=== PATIENT | female | born 1980 | race Caucasian/White ===

== ENCOUNTER 2017-09-19 02:46 | Emergency (ER) | payer OTHER ==
[~2017-09-19] VITALS: Ht 147.3 cm; Wt 44.5 kg
[~2017-09-19 02:46] MED LIST: ACETAMINOPHEN-1 EAC1 PO; AMOXIL 875 MG875 M1 PO; ATENOLOL-CHLOR1 EAC2 PO; AUGMENTIN 875875 M1 PO; AUGMENTIN 875875 MG PO; HYDROCODON-ACE1 EAC7 PO; IBUPROFEN 800800 MG PO; NOHOMEMEDICATIONS; NORCO 5-325 TA1 EACH PO; PERCOCET 5-3251 EACH PO
[2017-09-19] MEDS ORDERED: HYDROCODONE-AP1 EAC6 PO (03:12)
[2017-09-19] MEDS ORDERED: AMOXICILLIN875 MG PO (03:12)
[2017-09-19 03:29] VITALS: BP 118/70
== END 2017-09-19 03:31 | disposition home or self-care (01) ==
LOC: M.ERS 02:46
DX: H66.91 Otitis media, unspecified, right ear (principal); H72.91 Unspecified perforation of tympanic membrane, right ear; F17.210 Nicotine dependence, cigarettes, uncomplicated; I10 Essential (primary) hypertension; Z98.890 Other specified postprocedural states; Z91.040 Latex allergy status

== ENCOUNTER 2019-02-25 10:53 | Emergency (ER) | payer OTHER, MEDICAID ==
[~2019-02-25] VITALS: Ht 147.3 cm; Wt 54.4 kg
[~2019-02-25 10:53] MED LIST changes: +AMOXICILLIN875 MG PO; +HYDROCODONE-AP1 EAC6 PO
[2019-02-25] MEDS ORDERED: IBUPROFEN 800800 M1 PO (11:11)
[2019-02-25] MEDS ORDERED: ACETAMINOPHEN-1 EAC1 PO (11:11)
[2019-02-25] MEDS ORDERED: AUGMENTIN 500-1 EACH PO (11:11)
[2019-02-25 11:28] VITALS: BP 153/99
== END 2019-02-25 11:30 | disposition home or self-care (01) ==
LOC: M.ERS 10:53
DX: H66.92 Otitis media, unspecified, left ear (principal); I10 Essential (primary) hypertension; F17.210 Nicotine dependence, cigarettes, uncomplicated; Z90.49 Acquired absence of other specified parts of digestive tract; Z91.040 Latex allergy status